=== PATIENT | male | born 1960 | race Caucasian/White ===

== ENCOUNTER → 2022-02-23 14:57 | Outpatient (CLI) | payer OTHER, SELFPAY ==
--- NOTE | 2022-03-08 15:15 | DIAB.MNT ---
Initial Diabetes Medical Nutrition Therapy Assessment Name: Denzel Cabrera (Leodan) Date: 02/23/22 Time:310-410p Dx: Type II Diabetes Provider: Art Leodan presents for initial visit regarding T2DM. States he has been watching his hgA1c over the years. Reports it is usually in the 6-7% range. Seems he is unclear if he actually has been dx with DM or PDM. Reports h/o highest HgA1c of 7.2%. Endorses FH of DM with both mother, possibly father. Recently moved to [place] and is renovating home. Reports he avoids most breads and starches. Diet Recall: 610a: apple and coffee black 730a: gluten free bagel awiht cream cheese snack: peanuts 1130-1: leftovers or eating out (sushi or teriyaki x 1c brown rice) or cheetos x 1oz with turkey burger michel, 1c potatoes 3p: nuts or chips 6-730p: salad and turkey burger +/- potatoes, or chicken with salad/veggies snack: nothing or rare half chocolate bar or ice cream Beverages: ETOH 3-4 per sitting (10 per week). Water 90-120oz per day Anthropometrics: Ht: 5'10 Wt: 230# Physical Activity: lunch walk 10-30 minutes, dog walk 20 min 4x per week, was using stationary bike 4x per week but none for 2 [address] bike. Renovating home Self-Monitoring Blood Glucose: None Diabetes Medications: None Pertinent Labs: HgA1c 6.8% 10/2021 Past Medical History: Reported: HTN, HLD, left shoulder replacement Nutrition Rx: Plate Method Nutrition Diagnosis: - Nutrition knowledge deficit r/t no previous DSME or MNT aeb pt report - Excessive ETOH intake r/t portions per sitting >2 aeb diet recall Intervention: This participant was very receptive. Provided appropriate educational handouts. Discussed the following topics: Completed intake assessment. Discussed barriers to care. Pathophysiology of T2DM Diagnosis of DM vs PDM HgA1c, its correlation to blood glucose numbers, and rationale for goal Option of self-monitoring, how often, and when to check. Suggested checking at different times to evaluate meals Plate Method, impact of macronutrients on blood sugar Recommended servings for carbohydrates at meals and snacks Role of physical activity and following provider guidelines for safety Created SMART goals for patient self-care and success. Goals: Discuss SMBG supplies and meter with PCP Check SMBG 1-2 x per day for data to review trends Walk dog 5 x per week Bike 2 days per week Follow-up: NICKY MCCANN follow-up in 3 weeks for DSME classes and then 1:1 thereafter. Julee Gonzales RDN, [facility] Certified Diabetes Care and Recycling Center Operator P: [phone] Thank you for this referral
== END ==
PROVIDERS: PCP Family Medicine; Referring Provider Family Medicine; Visit Provider Family Medicine
DX: E11.9 Type 2 diabetes mellitus without complications (principal); Z71.3 Dietary counseling and surveillance
CPT/HCPCS: 97802

== ENCOUNTER → 2022-03-02 09:32 | Outpatient (CLI) | payer OTHER, SELFPAY ==
--- NOTE | 2022-03-08 15:34 | DIAB.FU ---
Diabetes Education Class Series: Diabetes and Nutrition Name: Denzel Cabrera (Leodan) Date: 03/02/22 Time: 450a-6940a Leodan presents for initial DSME class 1 of 3. States he has been working on eating out less. States he is also interested in being more active. Reports his stationary bike is not in a convenient place. Class topics covered: ? Debunk nutrition myths and discuss how to sustain healthy eating long-term through moderation and variety ? Define macronutrients and determine their impact on blood sugars ? Discuss macronutrient pairing, Plate Method, and carb counting ? Review general recommendations for carbohydrates ? Practice label reading ? Discuss the role of fiber in diabetes and provide examples of sources ? Review heart health nutrition: fats, fiber, and sodium ? Determine recommendations for grocery shopping and eating out ? Discuss alcohol recommendations ? Review the role of substitute sugars in diabetes management ? Set SMART goals Goal Set: walk dog 5 days per week; move bike to have better access ; Reduce eating out Follow-up: Diabetes Physiology and Medication Class in one week Julee Gonzales RDN, [facility] Registered Dietitian, Certified Diabetes Care and Sprinkler Fitter Apprentice [phone] [email or web address]
== END ==
PROVIDERS: PCP Family Medicine; Referring Provider Family Medicine; Visit Provider Family Medicine
DX: E11.9 Type 2 diabetes mellitus without complications (principal); Z71.3 Dietary counseling and surveillance
CPT/HCPCS: G0109

== ENCOUNTER → 2022-03-09 09:29 | Outpatient (CLI) | payer OTHER, SELFPAY ==
--- NOTE | 2022-03-11 10:12 | DIAB.FU ---
Diabetes Education Class Series: Diabetes Physiology and Medications Name: Leodan Cabrera Date: 03/09/22 Time: 509-6726s Leodan presents for class 2 of 3 of DSME classes. Class topics covered: ? Diabetes pathophysiology ? Discuss different types of diabetes ? Review criteria for diagnosing diabetes ? Review HgA1c measurement and associated blood sugars ? Review blood sugar monitoring safety, technique, and goals ? Discuss ways to reduce complications associated with diabetes, includes microvascular and macrovascular complications ? Review diabetes medications types, action, and side effects ? Health care visits recommended for people with T2DM ? Immunization recommended for people with T2DM ? SMART goals review Follow-up: Diabetes Lifestyle and Ongoing Support Class next week Julee Gonzales RDN, [facility] Registered Dietitian, Certified Diabetes Care and Diesel Dinkey Operator [phone] [email or web address]
== END ==
PROVIDERS: PCP Family Medicine; Referring Provider Family Medicine; Visit Provider Family Medicine
DX: E11.9 Type 2 diabetes mellitus without complications (principal); Z71.3 Dietary counseling and surveillance
CPT/HCPCS: G0109

== ENCOUNTER → 2022-03-16 09:23 | Outpatient (CLI) | payer OTHER, SELFPAY ==
--- NOTE | 2022-03-16 11:54 | DIAB.FU ---
Diabetes Education Class Series: Diabetes Lifestyle Change and Ongoing Support Name: Denzel Cabrera (Leodan) Date: 03/16/22 Time: 572-5324s Leodan presents today for class 3 of 3 for DSME. States he has been label reading, managing portions, and balancing meals with plate method. States he would like to increase his exercise. Additionally, he would like to discuss with his how she can support him with his diabetes management. Class topics covered: ? Discuss the difference between physical activity and exercise ? Determine physical activity benefits and impact on diabetes ? Review physical activity recommendations and safety ? Discuss emergency preparedness ? Discuss diabetes and emotions (diabetes burnout/distress) ? Review and practice stress management techniques ? Review support groups and community resources ? Discuss the role of family support in diabetes care ? What is going well? Challenges of diabetes? ? Set SMART goals Goal Set: Add exercise safely Follow-up: 1:1 visit follow-up Julee Gonzales RDN, [facility] Registered Dietitian, Certified Diabetes Care and Tie Carrier [phone] [email or web address]
== END ==
PROVIDERS: PCP Family Medicine; Referring Provider Family Medicine; Visit Provider Family Medicine
DX: E11.9 Type 2 diabetes mellitus without complications (principal); Z71.3 Dietary counseling and surveillance
CPT/HCPCS: G0109

== ENCOUNTER → 2022-03-24 11:28 | Outpatient (CLI) | payer OTHER, SELFPAY ==
--- NOTE | 2022-03-24 11:31 | DI.RAD.S_ITS ---
PROCEDURE: XR FINGER RT MIN 2V INDICATIONS: RT MIDDLE FINGER SWELLING TECHNIQUE: Three views of the right hand were performed COMPARISON: None. FINDINGS: Bones: Degenerative changes of the 3rd metacarpal phalangeal joints with joint space narrowing, osteophytes, and subchondral sclerosis consistent with focal osteoarthritis, possibly posttraumatic from a remote injury. More mild degenerative changes are also seen in the distal interphalangeal joints of the fingers and interphalangeal joint of thumb. Soft tissues: No suspicious soft tissue calcifications. IMPRESSION: Severe degenerative changes of the 3rd metacarpophalangeal joint consistent with osteoarthritis, likely from a remote trauma, however no acute fracture is identified. Dictated by: Hussain Cobb M.D. on 03/25/2022 at 9:46 Approved by: Hussain Cobb M.D. on 03/25/2022 at 9:50
== END ==
PROVIDERS: PCP Family Medicine; Referring Provider Family Medicine; Visit Provider Family Medicine
DX: M25.441 Effusion, right hand (principal)
CPT/HCPCS: 73140

== ENCOUNTER → 2022-05-26 14:58 | Outpatient (CLI) | payer OTHER, SELFPAY ==
--- NOTE | 2022-06-11 13:41 | DIAB.MNTFU ---
Follow-up Diabetes Medical Nutrition Therapy Assessment Name: Denzel Cabrera (Leodan) Date: 05/26/22 Time: 315-350p Dx: Type II Diabetes Provider: Art Leodan presents for follow-up post DSME classes and initial visit. States he continues to work on diet, but continues to struggle at times. Reports he sometimes comes home late, which results in eating out instead of cooking. Eats out 3-4x per week. Still waiting on pharmacy for meter, which seems unusual. Has strips but no meter. States his pharmacy said they are out of that meter. Endorses some cravings for processed snacks. Reduced ETOH intake No new PCP visit scheduled. Diet Recall: B: 1c oatmeal and almonds OR eggs OR bagel with cream cheese Sn: nuts L: sandwich or fruit Sn: nuts Anthropometrics: Ht: 5'10 Wt: 230# previous wt (no new wt today) Physical Activity: walks dog 4 x per week for 60 min, did not start stationary bike Self-Monitoring Blood Glucose: None Diabetes Medications: None Pertinent Labs: HgA1c 6.8% 10/2021 Past Medical History: Reported: HTN, HLD, left shoulder replacement Nutrition Rx: CCD 45g per meal 15-30g per snack Nutrition Diagnosis: - Nutrition knowledge deficit r/t no previous DSME or MNT aeb pt report- improved - Excessive ETOH intake r/t portions per sitting >2 aeb diet recall - improved Intervention: This participant was very receptive. Provided appropriate educational handouts. Discussed the following topics: Barriers to SMBG supplies Carb counting review and meal planning for easy dinners Heart health nutrition: fats, fiber, and sodium Eating out Physical activity plan and progress Created SMART goals for patient self-care and success. Goals: Discuss SMBG supplies and meter with PCP- met Check SMBG 1-2 x per day for data to review trends- cont Walk dog 5 x per week- 75% met Bike 2 days per week- not met Aim to cook 2 days per week - new Call PCP for scheduling-new Follow-up: NICKY MCCANN follow-up prn. Will call for check-in in 4-6 weeks. Julee Gonzales RDN, [facility] Certified Diabetes Care and Talent Program Manager P: [phone] Thank you for this referral
== END ==
PROVIDERS: PCP Family Medicine; Referring Provider Family Medicine; Visit Provider Family Medicine
DX: E11.9 Type 2 diabetes mellitus without complications (principal); Z71.3 Dietary counseling and surveillance
CPT/HCPCS: 97803

== ENCOUNTER 2022-06-01 08:06 | Day surgery (SDC) | payer OTHER, SELFPAY ==
[2022-06-01] MEDS: LACTATED RINGERS 1,000 ML 200 ML IV (08:21)
[2022-06-01 08:34] VITALS: BP 148/89; PULSE 70; RESP 12; TEMP 36.4; O2SAT 96; BMI 33.0
--- NOTE | 2022-06-01 08:40 | PM.HP.1 ---
History of Present Illness History of Present Illness Date Patient Seen: 06/01/22 Time Patient Seen: 08:40 Chief complaint: SDC Narrative: The patient presents for colorectal screening. He is a personal history of colonic polyps last colonoscopy 5 years ago. No personal or family history of colon cancer. On further history denies any recent gastrointestinal symptoms. No nausea, vomiting, abdominal pain, loss of appetite, unexplained weight loss, change in bowel habits, or blood per rectum. Patient History Medical History (Updated 06/01/22 @ 09:07 by Jr Smith MD) HTN (hypertension) Meds Home Medications and Allergies Home Medications Medication Instructions Recorded Confirmed Type aspirin 81 mg capsule 81 mg PO DAILY 06/01/22 06/01/22 History atorvastatin 20 mg tablet (Lipitor) 20 mg PO DAILY 06/01/22 06/01/22 History levothyroxine 25 mcg tablet 25 mcg PO DAILY 06/01/22 06/01/22 History (Synthroid) losartan 25 mg tablet 25 mg PO DAILY 06/01/22 06/01/22 History probenecid 500 mg tablet 500 mg PO DAILY 06/01/22 06/01/22 History tamsulosin 0.4 mg capsule (Flomax) 0.4 mg PO DAILY 06/01/22 06/01/22 History Allergies Allergy/AdvReac Type Severity Reaction Status Date / Time No Known Drug Allergies Allergy Verified 06/01/22 08:26 Exam Narrative Exam Narrative: General adult male alert oriented no acute distress Abdomen soft nontender nondistended Assessment & Plan Assessment and plan (1) Personal history of colonic polyps: Status: Acute Assessment & Plan narrative: The patient requires colorectal screening and colonoscopy is recommended. Technical details were discussed. Risks, benefits, alternatives explained. Risks including but not limited to myocardial infarction, aspiration, bleeding, pain, missed lesion, incomplete examination, need for further radiographic studies, colonic perforation, and need for major abdominal surgery were discussed. All questions were answered to their satisfaction, and they are in agreement with this plan. Time Spent With Patient Critical Care time: I spent a total of [] minutes of critical care time on this patient's care today; this time is exclusive of procedural time.
--- NOTE | 2022-06-01 08:41 | PM.OP.COLON ---
Operative Date/Time/Diagnoses Date of procedure: 06/01/22 Time of procedure: 08:41 Pre-op diagnosis: Colorectal screening Post-op diagnosis: same Procedure & Clinicians Study performed: Colonoscopy Same procedure as scheduled: Yes Indications: Colorectal screening Surgeon: Jr Smith Procedure Notes Procedure in detail: The history and physical was performed/updated and the patient is ASA class is 2. The procedure was discussed in detail with the patient. Potential risks complications including infection, bleeding, missed diagnosis, perforation, need for surgery, and were explained. Their questions were answered and informed consent was obtained. Patient was brought to the procedure room and placed standard monitoring equipment. The patient's vital signs were monitored continuously throughout the entire procedure. Prior to starting time-out was performed. The patient was placed in the left lateral recumbent position. Procedural sedation was administered by anesthesia. Examination began with a thorough inspection of the perianal area there was no evidence of fissures, fistulae, external hemorrhoids or cutaneous malignancy. The colonoscopy scope was then placed into the anal canal and was advanced to the cecum, which was identified by the ileocecal valve, the appendiceal orifice and the confluence of the taenia. The scope was then slowly withdrawn examining colon thoroughly in all directions, irrigating it of any residual stool. FINDINGS 1. No masses polyps or inflammation 2. Sigmoid diverticulosis moderate The patient tolerated the procedure well. They will be discharged once criteria are met. The prep was of good/excellent quality. The withdrawl time was 7 minutes. Specimen(s): none sent Impression: Normal colonoscopy Post-procedure Recommendations: Colonoscopy in 10 years and High fiber diet Disposition: same day surgery
[2022-06-01 09:53] VITALS: BP 89/59; PULSE 74; RESP 12; TEMP 36.1; O2SAT 96
[2022-06-01 09:55] VITALS: PULSE 79; RESP 13; O2SAT 95
[2022-06-01 09:56] VITALS: BP 107/74
--- NOTE | 2022-06-01 10:23 | SUR.PHASEII ---
1023: Pt A&Ox4, denies any distress and ready to discharge home. Discharge instructions reviewed with patient and time allowed for question. VSS, IV DC'd intact. Abdomen is soft. Pt left unit with all personal belongings, including CPAP, and written instructions via w/c to ER entrance where spouse will transport pt home.
== END 2022-06-01 10:26 | disposition home or self-care (01) ==
PROVIDERS: PCP Family Medicine; Referring Provider Surgery; Visit Provider Surgery
PROC: 0DJD8ZZ Inspection of Lower Intestinal Tract, Via Natural or Artificial Opening Endoscopic (ICD-10-PCS; CPT 45378; principal; 2022-06-01 09:15)
DX: Z12.11 Encounter for screening for malignant neoplasm of colon (principal); K57.30 Diverticulosis of large intestine without perforation or abscess without bleeding
CPT/HCPCS: 45378; J2704

== ENCOUNTER → 2023-07-13 09:06 | Outpatient (CLI) | payer OTHER, SELFPAY ==
--- NOTE | 2023-07-13 09:07 | DI.MRI.S_ITS ---
PROCEDURE: MR LUMBAR SPINE WO CON INDICATIONS: Spinal stenosis, lumbar region TECHNIQUE: Noncontrast sagittal T1 spin echo and T2 fast echo, sagittal STIR, and T2 fast spin echo through the lumbar spine. In cases with scoliosis, additional coronal T2 fast spin echo may be performed. COMPARISON: [facility] [place], CR, XR LUMBAR SPINE WITH OBLIQUES PLUS FLEXION EXTENSION, 05/16/2023, 8:42. FINDINGS: Image quality: Diagnostic Alignment: There is straightening of normal cervical lordosis. Trace retrolisthesis of L4 on L5. Marrow: No acute fracture. Disc space height loss and desiccation, particularly in the lower lumbar spine. Cord: There is clumping of the cauda equina nerve roots in the lower lumbar spine. Cord terminates in normal position. Soft tissues: Unremarkable Specific levels: L1-L2: Mild facet arthropathy. There is a small diffuse disc bulge. No stenosis. L2-L3: Gxco-hb-mxgunhvs facet arthropathy. Mild central narrowing. Small diffuse disc bulge. No neural foraminal narrowing. L3-L4: There is a central extrusion. Superimposed njkv-mp-rtjsbwed diffuse disc bulge. Moderate facet arthropathy. There is moderate central narrowing with narrowing of both subarticular recesses. Mild bilateral neural foraminal narrowing. L4-L5: Moderate size central extrusion, slightly asymmetric toward the left paracentral zone. Superimposed moderate disc bulge, asymmetric toward right. Moderate to severe facet arthropathy, greater on the right. There is moderate central narrowing, with particular stenosis of the right subarticular recess (traversing L5 nerve root). Annular fissure is present. Poiw-wo-fzijkinu bilateral neural foraminal narrowing. There may also be impingement in the right extraforaminal zone. L5-S1: Central extrusion with superimposed moderate diffuse disc bulge. Moderate facet arthropathy. Mild central narrowing affecting both subarticular recesses. Moderate to severe right and left neural foraminal narrowing. IMPRESSION: High-grade degenerative changes as above, characterized primarily by disc disease with central and paracentral extrusions as described above in the lower lumbar spine. There are multiple areas of stenoses. Dictated by: Wayne Dominguez M.D. on 07/13/2023 at 10:18 Approved by: Wayne Dominguez M.D. on 07/13/2023 at 10:22
== END ==
LOC: MRI 09:06
PROVIDERS: PCP Family Medicine; Referring Provider Physical Medicine & Rehabilitation Pain Medicine; Visit Provider Physical Medicine & Rehabilitation Pain Medicine
DX: M48.062 Spinal stenosis, lumbar region with neurogenic claudication (principal); M48.07 Spinal stenosis, lumbosacral region; M47.816 Spondylosis without myelopathy or radiculopathy, lumbar region; M47.817 Spondylosis without myelopathy or radiculopathy, lumbosacral region; M51.36 Other intervertebral disc degeneration, lumbar region; M51.37 Other intervertebral disc degeneration, lumbosacral region; M51.26 Other intervertebral disc displacement, lumbar region; M51.27 Other intervertebral disc displacement, lumbosacral region
CPT/HCPCS: 72148

== ENCOUNTER 2023-11-10 20:58 | Emergency (ER) | payer OTHER, SELFPAY ==
[2023-11-10 21:04] VITALS: BP 157/87; PULSE 66; RESP 16; TEMP 36.3; O2SAT 98; BMI 33.0
[2023-11-10 22:39] VITALS: BP 128/78; PULSE 73; RESP 18; TEMP 36.4; O2SAT 96
== END 2023-11-11 00:05 | disposition left against medical advice (07) ==
PROVIDERS: Emergency Provider Emergency Medicine; PCP Family Medicine
DX: S61.210A Laceration without foreign body of right index finger without damage to nail, initial encounter (principal); X58.XXXA Exposure to other specified factors, initial encounter
CPT/HCPCS: 99281

== ENCOUNTER → 2023-12-09 07:46 | Outpatient (CLI) | payer OTHER, SELFPAY ==
--- NOTE | 2023-12-09 | DI.CT.S_ITS ---
PROCEDURE: CT LUMBAR SPINE WO CON INDICATIONS: Spinal stenosis, lumbar region with neurogenic cla TECHNIQUE: Noncontrast 3 mm thick sections acquired from the T12 level to the sacrum. Sagittal and coronal reformats were constructed. For radiation dose reduction, the following was used: automated exposure control. COMPARISON: None. FINDINGS: Image quality: Excellent. Bones: There is normal bony alignment. No acute vertebral body compression fractures. No suspicious lytic or blastic bony lesions. No pars defects. T12-L1: Moderate disc height loss. L1-L2: Bilateral facet arthrosis. Moderate disc height loss. L2-L3: Bilateral facet arthrosis. Mild disc height loss. L3-L4: Bilateral facet arthrosis. Moderate disc height loss. Mild spinal canal narrowing and broad-based disc bulge. L4-L5: Bilateral facet hypertrophy and arthrosis, disc osteophyte complex. Mild bilateral neural foraminal narrowing. L5-S1: Bilateral facet hypertrophy and arthrosis, disc osteophyte complex. Moderate left and severe right neural foraminal narrowing. Soft tissues: No retroperitoneal masses or hematomas. Visualized aorta is normal in caliber. IMPRESSION: Multilevel degenerative disc disease and diffuse facet arthrosis, not significantly changed since 07/13/2023. Dictated by: Ihsan Steel M.D. on 12/09/2023 at 17:26 Approved by: Ihsan Steel M.D. on 12/09/2023 at 17:29
== END ==
PROVIDERS: PCP Family Medicine; Referring Provider Orthopaedic Surgery Orthopaedic Surgery of the Spine; Visit Provider Orthopaedic Surgery Orthopaedic Surgery of the Spine
DX: Z01.818 Encounter for other preprocedural examination (principal); Z01.812 Encounter for preprocedural laboratory examination; M48.062 Spinal stenosis, lumbar region with neurogenic claudication; M51.36 Other intervertebral disc degeneration, lumbar region; M47.816 Spondylosis without myelopathy or radiculopathy, lumbar region; M47.817 Spondylosis without myelopathy or radiculopathy, lumbosacral region; M48.07 Spinal stenosis, lumbosacral region; R73.9 Hyperglycemia, unspecified
CPT/HCPCS: 36415; 72131; 80048; 83036; 85025; 93005; 93010

== ENCOUNTER → 2023-12-09 07:48 | Outpatient (CLI) | payer OTHER, SELFPAY ==
--- NOTE | 2023-12-09 08:30 | EKG_ITS ---
[id number] [address] Test Date: 2023-12-09 Pat Name: Denzel Cabrera Department: [facility] Room: Gender: Male Registered Appraiser: SHONNA : 1960 Requested By: Order Number: [id number] Reading MD: Deng Harmon MD Measurements Intervals [place] Rate: 69 P: 40 KS: 182 QRS: 11 QRSD: 70 T: 70 QT: 376 QTc: 402 Interpretive Statements Sinus rhythm with premature atrial complexes Low voltage QRS Septal infarct , age undetermined Electronically Signed On 12-09-2023 8:42:37 PDT by Deng Harmon MD
[2023-12-09 09:22] LABS: Add Manual Diff / Slide Review NO; Basophils Absolute Auto 0 /uL (0-100); Basophils Percent Auto 0.9 % (0-2); Eosinophils Absolute Auto 300 /uL (0-450); Eosinophils Percent Auto 6.5 % (2-4); Hematocrit 44.3 % (41-53); Lymphocytes Absolute Auto 1100 /uL (1100-4500); Lymphocytes Percent Auto 26.3 % (25-40); Mean Corpuscular HGB Conc 33.9 % (30-36); Mean Corpuscular Hemoglobin 32.4 PG (26-34); Mean Corpuscular Volume 95.8 fL (80-100); Monocytes Absolute Auto 400 /uL (0-900); Monocytes Percent Auto 9.4 % (3-14); Neutrophils Absolute Auto 2300 /uL (1500-7000); Neutrophils Percent Auto 56.9 % (50-75); Platelet Count 242 X10^3/uL (150-400); Red Blood Cell Count 4.62 X10^6/uL (4.5-5.9); Red Cell Distribution Width 14.2 % (11.6-14.8); White Blood Cell Count 4.1 X10^3/uL (4.5-11.0)
[2023-12-09 09:36] LABS: BUN Creatinine Ratio 20.4 (6-22); Blood Urea Nitrogen 20 mg/dL (9-20); Calcium 9.4 mg/dL (8.4-10.2); Carbon Dioxide 25 mmol/L (22-32); Chloride 102 mmol/L (98-107); Estimated Glomerular Filt Rate > 60 mL/min (>60); Glucose 155 mg/dL (80-110); HEMOLYSIS < 15 (0-50); Potassium 4.7 mmol/L (3.4-5.1); Sodium 138 mmol/L (137-145)
[2023-12-09 09:38] LABS: Hemoglobin A1C% w Est Avg Glu 6.6 % (4.0-6.0)
== END ==
PROVIDERS: PCP Family Medicine; Referring Provider Orthopaedic Surgery Orthopaedic Surgery of the Spine; Visit Provider Orthopaedic Surgery Orthopaedic Surgery of the Spine
DX: Z01.812 Encounter for preprocedural laboratory examination (principal); Z01.818 Encounter for other preprocedural examination; R73.9 Hyperglycemia, unspecified
CPT/HCPCS: 36415; 80048; 83036; 85025; 93005

== ENCOUNTER → 2023-12-19 09:36 | Outpatient (CLI) | payer OTHER, SELFPAY ==
--- NOTE | 2023-12-19 09:39 | DI.RAD.S_ITS ---
PROCEDURE: XR SHOULDER LT MIN 2V INDICATIONS: NECK PAIN TECHNIQUE: 3 views of the shoulder were acquired. COMPARISON: None. FINDINGS: Bones: No fractures or dislocations. No suspicious bony lesions. Visualized ribs appear intact. Well-aligned, intact left partial shoulder arthroplasty without hardware complication. Acromioclavicular joint space narrowing with osteophytosis. Soft tissues: No suspicious soft tissue calcifications. IMPRESSION: Well-aligned, intact left partial shoulder arthroplasty without hardware complication. Dictated by: Ihsan Steel M.D. on 12/19/2023 at 14:36 Approved by: Ihsna Steel M.D. on 12/19/2023 at 14:37
--- NOTE | 2023-12-19 09:39 | DI.RAD.S_ITS ---
PROCEDURE: XR CERVICAL SPINE 2V OR 3V INDICATIONS: NECK PAIN TECHNIQUE: 3 view(s) of the cervical spine were acquired. COMPARISON: None. FINDINGS: Bones: No fractures or dislocations to the T1 level. The lateral masses of C1 appear intact on the odontoid view. No suspicious bony lesions. Moderate disc height loss C5-6, C6-7. Diffuse facet arthrosis. Soft tissues: No prevertebral soft tissue swelling. IMPRESSION: Mild to moderate, multilevel degenerative disc disease and diffuse facet arthrosis. Dictated by: Ihsan Steel M.D. on 12/19/2023 at 14:35 Approved by: Ihsan Steel M.D. on 12/19/2023 at 14:36
== END ==
LOC: RAD 09:37
PROVIDERS: PCP Family Medicine; Referring Provider Family Medicine; Visit Provider Family Medicine
DX: M47.812 Spondylosis without myelopathy or radiculopathy, cervical region (principal); M50.322 Other cervical disc degeneration at C5-C6 level; G89.29 Other chronic pain; Z96.612 Presence of left artificial shoulder joint
CPT/HCPCS: 72040; 73030

== ENCOUNTER 2024-09-15 10:20 | Emergency (ER) | payer OTHER, SELFPAY ==
[2024-09-15 10:26] VITALS: BP 158/74; PULSE 80; RESP 18; O2SAT 98
[2024-09-15 10:28] VITALS: BP 158/74; PULSE 78; PULSE 81; RESP 20; TEMP 36.6; O2SAT 96; BMI 31.5
[2024-09-15 10:30] VITALS: BP 135/63; RESP 18
--- NOTE | 2024-09-15 10:34 | DI.US.S_ITS ---
PROCEDURE: US PERIPH VENOUS LOW EXTREM RT INDICATIONS: RIGHT NAVA LUMP TECHNIQUE: Real-time imaging, as well as color and pulse Doppler interrogation, were performed of the lower extremity deep veins from the inguinal ligament to the popliteal fossa, with documentation of the visualized calf veins. COMPARISON: None. FINDINGS: The common femoral, femoral, popliteal, and the visualized calf veins are normally compressible, and free of intraluminal thrombus. Color and pulse Doppler demonstrate normal phasic intraluminal flow. There is normal augmentation response to distal compression maneuver. Additional, dedicated ultrasound scanning is performed at the area of the nava lump. No focal ultrasound abnormalities are seen within this region. IMPRESSION: No findings of lower extremity deep venous thrombosis. Nodes are seen abnormalities can be seen at the nava lump. Dictated by: Breezy Elizondo M.D. on 09/15/2024 at 10:11 Approved by: Breezy Elizondo M.D. on 09/15/2024 at 10:12
[2024-09-15 11:00] VITALS: BP 128/66; PULSE 75; RESP 18; O2SAT 98
--- NOTE | 2024-09-15 11:05 | ED.EXTPRO ---
HPI - Extremity Problem <Kalani Strange PA-C - Last Filed: 09/15/24 12:05> General Chief complaint: Extremity Problem,Nontraumatic Stated complaint: bloodclot,post op, pain while walking Time Seen by Provider: 09/15/24 11:05 Source: patient Mode of arrival: Ambulatory History of Present Illness HPI Narrative: 64-year-old male with history of L5-S1 spinal fusion surgery on August 22 presents with concern for right calf pain and evaluation for DVT. Patient states he has actually been having leg pain on the right side for about the past week which she believes is nerve pain related to the surgery. He describes it as a shooting/throbbing pain that does improve some with walking. He has been taking prednisone and gabapentin for this and states he only came in today because the pain worsened last night to a 10/10 and woke him from his sleep. He states he did walk a lot more yesterday than he has since the surgery. He and his both noted that he has a slightly swollen area on the mid right side of his calf he states this is where the pain was more intense and also has noted tenderness when he presses on this area. He has not started physical therapy. Denies any other complaints or concerns including fevers, chills, redness to the leg, swelling of the leg or other symptoms. Related Data Home Medications Medication Instructions Recorded Confirmed aspirin 81 mg capsule 81 mg PO DAILY 06/01/22 07/05/23 atorvastatin 20 mg tablet (Lipitor) 20 mg PO DAILY 06/01/22 07/05/23 levothyroxine 25 mcg tablet 25 mcg PO DAILY 06/01/22 07/05/23 (Synthroid) losartan 25 mg tablet 25 mg PO DAILY 06/01/22 07/05/23 probenecid 500 mg tablet 500 mg PO DAILY 06/01/22 07/05/23 tamsulosin 0.4 mg capsule (Flomax) 0.4 mg PO DAILY 06/01/22 07/05/23 Previous Rx's Medication Instructions Recorded cyclobenzaprine 5 mg tablet 5 mg PO TID PRN muscle spasm #20 12/22/22 tabs benzonatate 200 mg capsule 200 mg PO BID PRN cough #28 caps 05/04/23 fluticasone propionate 50 1 spray intranasal Q12H #16 grams 05/04/23 mcg/actuation nasal spray,suspension (Flonase Allergy Relief) lidocaine 5 % topical ointment 1 applic topical TID PRN pain 10 09/15/24 days #30 grams Allergies Allergy/AdvReac Type Severity Reaction Status Date / Time No Known Drug Allergies Allergy Verified 11/11/23 08:01 Review of Systems <Kalani Strange PA-C - Last Filed: 09/15/24 12:05> Review of Systems Narrative: See HPI Patient History <Kalani Strange PA-C - Last Filed: 09/15/24 12:05> Medical History HTN (hypertension) Social History household members: spouse Smoking Status: Never smoker alcohol intake: current Smoking Status: Never smoker alcohol intake frequency: a few times a week Exam <Kalani Strange PA-C - Last Filed: 09/15/24 12:05> Narrative Exam Narrative: GENERAL: [64] year old patient appears stated age. Well-developed patient, in mild distress. HEAD: Atraumatic. Normocephalic. EYES: Pupils equal round and reactive. Extraocular motions intact. No scleral icterus. No injection or drainage. ENT: Nose without bleeding, purulent drainage. Airway patent. NECK: Trachea midline. CARDIOVASCULAR: Regular rate and rhythm without murmurs, gallops, or rubs. RESPIRATORY: Clear to auscultation. Breath sounds equal bilaterally. No wheezes, rales, or rhonchi. GASTROINTESTINAL: Abdomen nondistended. EXTREMITIES: Right posterior mid calf is tender with muscle tightness. ROM is intact, there is no erythema. distal pulses 2+ bilaterally. Bilateral calf circumference at 10 cm below the tibial tuberosity is 41 cm equally. No edema or joint tenderness. BACK: There is a healing midline surgical scar in the lumbar/sacral spine. No evidence of infection. Nontender without deformity or crepitance. No flank tenderness. NEURO: AOx3. SKIN: No rash or erythema of visible areas Initial Vital Signs Initial Vital Signs: Vital Signs Pulse Rate 80 09/15/24 10:26 Respiratory Rate 18 09/15/24 10:26 Blood Pressure 158/74 H 09/15/24 10:26 Pulse Oximetry 98 09/15/24 10:26 <DO Moira Liao Last Filed: 09/15/24 12:51> Initial Vital Signs Initial Vital Signs: Vital Signs Pulse Rate 80 09/15/24 10:26 Respiratory Rate 18 09/15/24 10:26 Blood Pressure 158/74 H 09/15/24 10:26 Pulse Oximetry 98 09/15/24 10:26 Course <REBECCA Pham Last Filed: 09/15/24 12:05> Orders Ordered: ED Orders 09/15/24 10:34 periph venous low extrem rt Stat Vital Signs Vital signs: Vital Signs - 8 hr 09/15/24 10:26 09/15/24 10:26 09/15/24 10:28 Temperature 97.9 F Pulse Rate 80 81 Respiratory Rate 18 20 Blood Pressure 158/74 H 158/74 H Pulse Oximetry 98 96 Oxygen Delivery Method Room Air 09/15/24 10:28 09/15/24 10:30 09/15/24 11:00 Temperature Pulse Rate 78 75 Respiratory Rate 18 18 Blood Pressure 135/63 128/66 Pulse Oximetry 96 98 Oxygen Delivery Method 09/15/24 11:30 Temperature Pulse Rate 78 Respiratory Rate 18 Blood Pressure 130/76 Pulse Oximetry 96 Oxygen Delivery Method Room Air <DO Moira Liao Last Filed: 09/15/24 12:51> Orders Ordered: ED Orders 09/15/24 10:34 periph venous low extrem rt Stat Vital Signs Vital signs: Vital Signs - 8 hr 09/15/24 10:26 09/15/24 10:26 09/15/24 10:28 Temperature 97.9 F Pulse Rate 80 81 Respiratory Rate 18 20 Blood Pressure 158/74 H 158/74 H Pulse Oximetry 98 96 Oxygen Delivery Method Room Air 09/15/24 10:28 09/15/24 10:30 09/15/24 11:00 Temperature Pulse Rate 78 75 Respiratory Rate 18 18 Blood Pressure 135/63 128/66 Pulse Oximetry 96 98 Oxygen Delivery Method 09/15/24 11:30 Temperature Pulse Rate 78 Respiratory Rate 18 Blood Pressure 130/76 Pulse Oximetry 96 Oxygen Delivery Method Room Air MDM - Extremity (Nontraumatic) <REBECCA Pham Last Filed: 09/15/24 12:05> Differential Diagnosis Differential diagnosis: Likely cellulitis, lower extremity edema, deep vein thrombosis of lower extremity and other (muscle spasm; post-up pain) Imaging Data US - DVT: My Impression: Agree with radiology interpretation Radiologist's Impression: [address] [address] Ultrasound Report Signed Patient: Denzel Cabrera MR#: [id number] : 1960 Acct:[id number] Age/Sex: 64 / M Date of Service: 09/15/24 Loc: ED Accession Number: [id number] Procedure: US periph venous low extrem rt Ordering Provider: Padmini Sanchez D.O. PROCEDURE: US PERIPH VENOUS LOW EXTREM RT INDICATIONS: RIGHT NAVA LUMP TECHNIQUE: Real-time imaging, as well as color and pulse Doppler interrogation, were performed of the lower extremity deep veins from the inguinal ligament to the popliteal fossa, with documentation of the visualized calf veins. COMPARISON: None. FINDINGS: The common femoral, femoral, popliteal, and the visualized calf veins are normally compressible, and free of intraluminal thrombus. Color and pulse Doppler demonstrate normal phasic intraluminal flow. There is normal augmentation response to distal compression maneuver. Additional, dedicated ultrasound scanning is performed at the area of the nava lump. No focal ultrasound abnormalities are seen within this region. IMPRESSION: No findings of lower extremity deep venous thrombosis. Nodes are seen abnormalities can be seen at the nava lump. Dictated by: Breezy Elizondo M.D. on 09/15/2024 at 10:11 Approved by: Breezy Elizondo M.D. on 09/15/2024 at 10:12 [facility] Narrative Medical decision making narrative: This is a 64-year-old male with a history of lumbosacral spinal fusion approximately 3 weeks ago presenting with concern for right calf pain. With leg pain for 7 days worsened last night in the setting of increased exercise activity/walking yesterday. Exam is most suggestive of tight muscles/muscle spasming, certainly possible there is some nerve pain secondary to persistent inflammation related to his spinal surgery. His calves are equal in circumference there is no erythema or heat noted. He does have a very subtle area of soft tissue swelling on the right mid lateral calf with muscle tenderness deep to this. Posteriorly he does have muscle tightness and tenderness as well on exam. Range of motion is intact and exam and history are not highly suggestive of DVT. Ultrasound is obtained and is negative for DVT. He was advised to continue with home treatments of muscle relaxer as needed, Tylenol, gabapentin, complete previously prescribed prednisone taper, new prescription for topical lidocaine and try ice and heat. Monitor for new or worsening symptoms. Return precautions provided, follow-up plan discussed, all questions answered. Discharge Plan Departure Patient Disposition: Home Clinical Impression: Muscle spasm of right calf Acute leg pain Qualifiers: Laterality: right Qualified Code(s): M79.604 - Pain in right leg Activity Restrictions/Additional Instructions: *You have been diagnosed with [leg pain/muscle spasming] *What to do: *Please continue to take your regular medications as directed. [ ] New medication prescriptions sent to your pharmacy: [ ] [ ] New medication written as a paper prescription [ ] No new medications given *Please follow up with your primary care provider in 2-3 days, call for an appointment. Let them know you were seen in the Emergency Department and that we ask that you be seen in follow up. We will electronically transmit a record of today's note if your PCP is in our system. Your ultrasound today was negative for DVT. Certainly possible that some of her pain is related to your recent surgery and could be nerve pain, however I do think you also have tight muscles in her calf that are likely contributing to your pain, muscle spasming can be quite painful. And it is possible that this happened last night causing her pain to worsen. I would recommend trying heat-you can consider alternating with ice, gentle stretching; continue to monitor for recurrent severe pain or other new symptoms such as redness heat swelling or numbness in the leg and make sure you seek re-evaluation if any of these develop. You can continue with muscle relaxers, OTC pain medications, finished a prednisone taper and the gabapentin you were prescribed. I have also prescribed some topical lidocaine for you which may be helpful. *If you do not have a primary care provider please contact the [facility] Resource line at [phone]. They will ask some questions about your medical history and help get you set up with a doctor in the community. *Return to Emergency Department if you should have any new, worsening or concerning symptoms, such as [fever greater than 101 F, shaking chills, worsening pain, persistent vomiting or other bothersome symptoms] Prescriptions: New lidocaine 5 % ointment 1 applic topical TID PRN (Reason: pain) 10 Days Qty: 30 0RF No Action fluticasone propionate [Flonase Allergy Relief] 50 mcg/actuation spray,suspension 1 spray intranasal Q12H Qty: 16 0RF Rx Instructions: administer into each nostril benzonatate 200 mg capsule 200 mg PO BID PRN (Reason: cough) Qty: 28 0RF cyclobenzaprine 5 mg tablet 5 mg PO TID PRN (Reason: muscle spasm) Qty: 20 0RF atorvastatin [Lipitor] 20 mg Tablet 20 mg PO DAILY levothyroxine [Synthroid] 25 mcg Tablet 25 mcg PO DAILY tamsulosin [Flomax] 0.4 mg Capsule 0.4 mg PO DAILY losartan 25 mg Tablet 25 mg PO DAILY probenecid 500 mg Tablet 500 mg PO DAILY aspirin 81 mg Capsule 81 mg PO DAILY Referrals: Waqas Cordova MD [Primary Care Provider] - Stand Alone Forms: Patient Portal/API/Survey ED Sign-out <Padmini Sanchez DO - Last Filed: 09/15/24 12:51> Cosign ED Attending Cosignature Attestation: I was immediately available in the department for consultation.
[2024-09-15 11:30] VITALS: BP 130/76; PULSE 78; RESP 18; O2SAT 96
== END 2024-09-15 12:08 | disposition home or self-care (01) ==
PROVIDERS: Emergency Provider Student in an Organized Health Care Education/Training Program; PCP Family Medicine
DX: M62.831 Muscle spasm of calf (principal); M79.604 Pain in right leg
CPT/HCPCS: 93971; 99281; 99283